=== PATIENT | male | born 1955 | race African-American/Black ===

== ENCOUNTER 2017-07-16 16:04 | Emergency (ER) | payer OTHER ==
[~2017-07-16] VITALS: Ht 177.8 cm; Wt 83.9 kg
[2017-07-16 16:08] VITALS: BP 162/89
--- NOTE | 2017-07-16 16:54 | Emergency Room Report ---
History of Present Illness General Chief Complaint: Chest Pain Source: Patient Present Illness HPI 62YOM BIBEMS and [employer] in custody for chest pain Patient was caught shoplifting, [employer] was called Patient c/o left sided chest pain, non-radiating, reproducible, worse with movement right after being arrested Denies assoc SOB, nausea/vomiting, diaphoresis Denies fever/chills, cough, abd pain States history of HTN but doesnt know name of med/dose that he takes Also states he takes Wellbutrin, seroquel for depression but hasnt taken today Denies drug use, smoking, ETOH Was given NTG by EMS with minimal improvement in pain Allergies: Coded Allergies: No Known Allergies (Unverified , 07/16/17) Patient History Past Medical History: HTN, psych hx Past Surgical History: none Pertinent Family History: none Social History: Denies: smoking, alcohol use, drug use Immunizations: UTD Reviewed Nursing Documentation: PMH: Agreed, PSxH: Agreed Nursing Documentation-PMH Past Medical History: No History, Except For Hx Cardiac Problems: Yes Hx Hypertension: Yes History Of Psychiatric Problem: Yes Review of Systems All Other Systems: negative except mentioned in HPI Physical Exam Vital Signs Date Time Temp Pulse Resp B/P (MAP) Pulse Ox O2 Delivery O2 Flow Rate FiO2 07/16/17 16:00 98.4 76 16 162/89 99 Room Air Sp02 EP Interpretation: reviewed, normal General Appearance: normal inspection, well appearing, no apparent distress, alert, GCS 15, non-toxic Head: normocephalic, atraumatic Eyes: bilateral eye PERRL, bilateral eye EOMI ENT: normal ENT inspection, hearing grossly normal, normal voice Neck: normal inspection, full range of motion, supple, no bony tend Respiratory: normal inspection, lungs clear, normal breath sounds, no respiratory distress, no retraction, no wheezing, other - Chest pain VERY reproducible on mild palpation of chest, chest symmetrical Cardiovascular #1: regular rate, rhythm, no edema Gastrointestinal: normal inspection, normal bowel sounds, non tender, soft, no guarding, no hernia Genitourinary: no CVA tenderness Musculoskeletal: normal inspection, back normal, normal range of motion, Murtaza' s Sign negative Neurologic: normal inspection, alert, oriented x3, responsive, 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 Afebrile Unlikely ACS or PE given reproducible, worse with movement, occurred after arrest Also significant portion of this is anxiety related Was given missed dose of Wellbutrin and also PO ativan for anxiety ECG is non-ischemic MEDICALLY CLEARED FOR [employer] ARRAIGNMENT EKG Diagnostic Results Rate: normal Rhythm: NSR ST Segments: no acute changes ASA given to the pt in ED: No Rhythm Strip Diag. Results EP Interpretation: yes Rate: 77 Rhythm: NSR, no PVC's, no ectopy Last Vital Signs Date Time Temp Pulse Resp B/P (MAP) Pulse Ox O2 Delivery O2 Flow Rate FiO2 07/16/17 16:00 98.4 76 16 162/89 99 Room Air Status: improved Disposition: D/C TO [employer]NF[employer]CEMENT IN CUST Condition: Improved MITCHEL VILLAFANA M.D. Jul 16, 2017 16:54
[2017-07-16] MEDS ORDERED: LORazepam 0.5mg tab ORAL ONE (17:00)
[2017-07-16 17:10] VITALS: BP 162/89
--- NOTE | 2017-07-20 14:55 | Cardiology Report ---
APPROVED REPORT EKG Measurement Heart [id number] ID [id number] Normal sinus rhythm Normal ECG
== END 2017-07-16 17:50 ==
LOC: EDBD 16:04 → EMR 16:57
DX: R07.89 Other chest pain (principal); I10 Essential (primary) hypertension; F32.9 Major depressive disorder, single episode, unspecified; Z79.899 Other long term (current) drug therapy
CPT/HCPCS: 93005; 99283